=== PATIENT | male | born 1975 | race American Indian/Alaskan Native ===

== ENCOUNTER 2020-09-26 12:32 | Emergency (ER) | payer SELFPAY ==
--- NOTE | 2020-09-26 14:08 | Event Note ---
ED Screening Note Date of service: 09/26/20 Time: 14:07 ED Screening Note: 45-year-old male patient with history of kidney stones presents emergency department with complaints of nontraumatic left flank pain and hematuria starting approximately 8 hours ago. Patient states symptoms are consistent with prior kidney stones. General: Awake, appropriately interactive, no acute distress. Neck: Supple. Full range of motion intact. Cardiovascular: Normal peripheral perfusion. Pulmonary: No respiratory distress. Patient is speaking normally without use of accessory muscles. Skin: No apparent rashes or lesions. Neurological: No facial asymmetry. Speech is clear. Follows commands. Patient is alert and oriented. Musculoskeletal: Moves all four extremities spontaneously with normal range of motion. Psych: Cooperative. Appropriate mood and affect. I have greeted and performed a focused rapid initial assessment of this patient. A comprehensive ED assessment and evaluation of the patient, analysis of all test results, and completion of the medical decision-making process will be conducted by additional ED providers. This initial assessment/diagnostic orders/clinical plan/treatment(s) is/are subject to change based on patients health status, clinical progression and re-assessment. Further treatment and workup at subsequent clinical provider's discretion. Patient/guardian urged not to elope from the ED as their condition may be serious if not clinically assessed and managed.
[2020-09-26 14:38] LABS: Basophils # (Auto) 0.1 K/mm3 (0.0-0.1); Basophils % (Auto) 1.1 % (0.0-1.8); Eosinophils # (Auto) 0.2 K/mm3 (0.0-0.4); Hematocrit 37.8 % (35.5-45.6); Hemoglobin 12.5 gm/dl (11.8-15.2); Lymphocytes # (Auto) 2.3 K/mm3 (1.2-5.4); Lymphocytes % (Auto) 31.8 % (13.4-35.0); Mean Corpuscular HGB Conc 33 % (32-34); Mean Corpuscular Volume 96 fl (84-94); Monocytes # (Auto) 0.5 K/mm3 (0.0-0.8); Monocytes % (Auto) 7.3 % (0.0-7.3); Platelet Count 253 K/mm3 (140-440); Red Blood Count 3.94 M/mm3 (3.65-5.03); Red Cell Distribution Width 12.5 % (13.2-15.2)
[2020-09-26 14:53] LABS: Alanine Aminotransferase 19 units/L (7-56); Albumin 4.2 g/dL (3.9-5); BUN/Creatinine Ratio 18; Blood Urea Nitrogen 18 mg/dL (9-20); Calcium 9.1 mg/dL (8.4-10.2); Hemolysis Index 3
[2020-09-26 15:09] LABS: Bilirubin,Urine NEG (Negative); Blood,Urine LG (Negative); Color,Urine Yellow (Yellow); Mucus,Urine FEW /HPF; Urobilinogen,Urine < 2.0 mg/dL (<2.0)
[2020-09-26 15:28] LABS: RBC,Urine > 182.0 /HPF (0.0-6.0)
[2020-09-26] MEDS ORDERED: SODIUM CHLORIDE 0.9% 1000 ML 1,000 ML IV ONE (17:50)
[2020-09-26] MEDS ORDERED: ONDANSETRON 4 MG/2 ML INJ IV ONE (17:50)
[2020-09-26] MEDS ORDERED: KETOROLAC 30 MG/1 ML INJ IV ONE (17:50)
--- NOTE | 2020-09-26 18:38 | Cat Scan Report ---
CT ABDOMEN AND PELVIS WITHOUT CONTRAST HISTORY: Left flank pain COMPARISON: None TECHNIQUE: Routine abdominal and pelvic CT exam performed without contrast. Lack of intravenous cont rast limits evaluation of the vascular and solid organs.. All CT scans at this location are performed using CT dose reduction for ALARA by means of automated exposure control. FINDINGS: CT ABDOMEN: Lung Bases: No significant abnormality. Liver: No significant abnormality. Biliary: No significant abnormality. Spleen: No significant abnormality. Unenlarged. Pancreas: No significant abnormality. Adrenals: No significant abnormality. Kidneys: There are multiple bilateral intrarenal stones measuring up to 4 mm. There are no ureteral s tones and there is no hydronephrosis. Lymphatics: No lymphadenopathy. Vasculature: No significant abnormality. Bowel/Peritoneum: No significant abnormality. No free air. No free fluid. Normal appendix. CT PELVIC: : No significant abnormality. Lymphatics: No lymphadenopathy. Osseous Structures: No aggressive appearing osseous lesions. Additional Findings: None IMPRESSION: 1. Multiple bilateral intrarenal stones. No ureteral stones or hydronephrosis. Signer Name: Jesus Og MD Signed: 09/26/2020 6:34 PM Workstation Name: [id number]
[2020-09-26 18:41] VITALS: BP 128/86
--- NOTE | 2020-09-26 19:33 | Emergency Department Report ---
ED Abdominal Pain HPI - General Chief Complaint: Abdominal Pain Stated Complaint: BLOOD IN URINE, LOWER BACK PAIN PUI?: No Time Seen by Provider: 09/26/20 17:43 Source: patient Mode of arrival: Ambulatory Limitations: No Limitations - History of Present Illness Initial Comments: This is a 45-year-old male with a history of kidney stone who presents to the ED complaining of hematuria that began yesterday after he got off work. Patient states that he went home thinking nothing of it and when he woke up around 2:30 AM he started having shooting flank pain and today this morning when he went to use the bathroom it was worse than the day before with blood in it. Patient denies any dysuria, nausea vomiting or diarrhea. Patient denies fever/chills/chest pain or shortness of breath. MD Complaint: flank pain Severity scale (0 -10): 8 - Related Data Previous Rx's Medication Instructions Recorded Last Taken Type Hyoscyamine Subl [Levsin Sl] 0.125 mg SL Q4HR PRN #20 tablet 06/04/13 Unknown Rx Metoclopramide HCl [Reglan] 10 mg PO Q8H PRN #20 tablet 06/04/13 Unknown Rx Oxycodone HCl/Acetaminophen 1 each PO Q6HR PRN #30 tablet 06/04/13 Unknown Rx [Percocet 10-325 mg] Ketorolac [Toradol] 10 mg PO Q6H PRN #30 tablet 09/26/20 Unknown Rx Ondansetron [Zofran ODT TAB] 8 mg PO Q12HR #20 tab.rapdis 09/26/20 Unknown Rx Tamsulosin [Flomax] 0.4 mg PO QDAY #10 cap 09/26/20 Unknown Rx Allergies Allergy/AdvReac Type Severity Reaction Status Date / Time No Known Allergies Allergy Verified 06/04/13 00:32 ED Review of Systems ROS: Stated complaint: BLOOD IN URINE, LOWER BACK PAIN Other details as noted in HPI Comment: All other systems reviewed and negative ED Past Medical Hx - Past Medical History Previous Medical History?: No - Surgical History Past Surgical History?: No - Social History Smoking Status: Never Smoker Substance Use Type: None - Medications Home Medications: Home Medications Medication Instructions Recorded Confirmed Last Taken Type Hyoscyamine Subl [Levsin Sl] 0.125 mg SL Q4HR PRN #20 tablet 06/04/13 Unknown Rx Metoclopramide HCl [Reglan] 10 mg PO Q8H PRN #20 tablet 06/04/13 Unknown Rx Oxycodone HCl/Acetaminophen 1 each PO Q6HR PRN #30 tablet 06/04/13 Unknown Rx [Percocet 10-325 mg] Ketorolac [Toradol] 10 mg PO Q6H PRN #30 tablet 09/26/20 Unknown Rx Ondansetron [Zofran ODT TAB] 8 mg PO Q12HR #20 tab.rapdis 09/26/20 Unknown Rx Tamsulosin [Flomax] 0.4 mg PO QDAY #10 cap 09/26/20 Unknown Rx ED Physical Exam - General Limitations: No Limitations General appearance: alert, in no apparent distress - Head Head exam: Present: atraumatic, normocephalic - Eye Eye exam: Present: normal appearance - ENT ENT exam: Present: mucous membranes moist - Neck Neck exam: Present: normal inspection - Respiratory Respiratory exam: Present: normal lung sounds bilaterally. Absent: respiratory distress - Cardiovascular Cardiovascular Exam: Present: regular rate, normal rhythm. Absent: systolic murmur, diastolic murmur, rubs, gallop - GI/Abdominal GI/Abdominal exam: Present: soft, normal bowel sounds - Rectal Rectal exam: Present: deferred - Extremities Exam Extremities exam: Present: normal inspection - Back Exam Back exam: Present: normal inspection, full ROM, CVA tenderness (L). Absent: tenderness, CVA tenderness (R), muscle spasm - Neurological Exam Neurological exam: Present: alert, oriented X3, normal gait - Psychiatric Psychiatric exam: Present: normal affect, normal mood - Skin Skin exam: Present: warm, dry, intact, normal color. Absent: rash ED Course Vital Signs 09/26/20 09/26/20 18:40 18:45 Temperature 98.3 F Pulse Rate 61 Respiratory 18 18 Rate Blood Pressure 128/86 [Right] O2 Sat by Pulse 100 Oximetry - Reevaluation(s) Reevaluation #1: Upon evaluation pain is resolved at this time. CT scan report discussed with patient. IV fluids administration at 500 mL. 09/26/20 19:57 ED Medical Decision Making - Lab Data Result diagrams: 09/26/20 14:21 09/26/20 14:21 Laboratory Last Values WBC 7.2 K/mm3 (4.5-11.0) 09/26/20 14:21 RBC 3.94 M/mm3 (3.65-5.03) 09/26/20 14:21 Hgb 12.5 gm/dl (11.8-15.2) 09/26/20 14:21 Hct 37.8 % (35.5-45.6) 09/26/20 14:21 MCV 96 fl (84-94) H 09/26/20 14:21 MCH 32 pg (28-32) 09/26/20 14:21 MCHC 33 % (32-34) 09/26/20 14:21 RDW 12.5 % (13.2-15.2) L 09/26/20 14:21 Plt Count 253 K/mm3 (140-440) 09/26/20 14:21 Lymph % (Auto) 31.8 % (13.4-35.0) 09/26/20 14:21 [place] % (Auto) 7.3 % (0.0-7.3) 09/26/20 14:21 Eos % (Auto) 3.0 % (0.0-4.3) 09/26/20 14:21 Baso % (Auto) 1.1 % (0.0-1.8) 09/26/20 14:21 Lymph # (Auto) 2.3 K/mm3 (1.2-5.4) 09/26/20 14:21 [place] # (Auto) 0.5 K/mm3 (0.0-0.8) 09/26/20 14:21 Eos # (Auto) 0.2 K/mm3 (0.0-0.4) 09/26/20 14:21 Baso # (Auto) 0.1 K/mm3 (0.0-0.1) 09/26/20 14:21 Seg Neutrophils % 56.8 % (40.0-70.0) 09/26/20 14: Seg Neutrophils # 4.1 K/mm3 (1.8-7.7) 09/26/20 14:21 Sodium 140 mmol/L (137-145) 09/26/20 14:21 Potassium 4.0 mmol/L (3.6-5.0) 09/26/20 14:21 Chloride 104.4 mmol/L (98-107) 09/26/20 14:21 Carbon Dioxide 27 mmol/L (22-30) 09/26/20 14:21 Anion Gap 13 mmol/L 09/26/20 14:21 BUN 18 mg/dL (9-20) 09/26/20 14:21 Creatinine 1.0 mg/dL (0.8-1.3) 09/26/20 14:21 Estimated GFR > 60 ml/min 09/26/20 14:21 BUN/Creatinine Ratio 18 % 09/26/20 14:21 Glucose 77 mg/dL (75-100) 09/26/20 14:21 Calcium 9.1 mg/dL (8.4-10.2) 09/26/20 14: Magnesium 1.80 mg/dL (1.7-2.3) 09/26/20 14: Total Bilirubin 0.50 mg/dL (0.1-1.2) 09/26/20 14: AST 23 units/L (5-40) 09/26/20 14: ALT 19 units/L (7-56) 09/26/20 14:21 Alkaline Phosphatase 73 units/L (35-129) 09/26/20 14:21 Total Protein 6.8 g/dL (6.3-8.2) 09/26/20 14: Albumin 4.2 g/dL (3.9-5) 09/26/20 14:21 Albumin/Globulin Ratio 1.6 % 09/26/20 14:21 Urine Color Yellow (Yellow) 09/26/20 14:27 Urine Turbidity Cloudy (Clear) 09/26/20 14: Urine pH 6.0 (5.0-7.0) 09/26/20 14:27 Ur Specific [place] 1.023 (1.003-1.030) 09/26/20 14: Urine Protein 30 mg/dl mg/dL (Negative) 09/26/20 14:27 Urine Glucose (UA) Neg mg/dL (Negative) 09/26/20 14: Urine Ketones Neg mg/dL (Negative) 09/26/20 14:27 Urine Blood Lg (Negative) 09/26/20 14: Urine Nitrite Neg (Negative) 09/26/20 14: Urine Bilirubin Neg (Negative) 09/26/20 14: Urine Urobilinogen < 2.0 mg/dL (<2.0) 09/26/20 14:27 Ur Leukocyte Esterase Neg (Negative) 09/26/20 14:27 Urine WBC (Auto) 1.0 /HPF (0.0-6.0) 09/26/20 14:27 Urine RBC (Auto) > 182.0 /HPF (0.0-6.0) 09/26/20 14:27 Urine Mucus Few /HPF 09/26/20 14:27 - Radiology Data Radiology results: report reviewed, image reviewed CT ABDOMEN AND PELVIS WITHOUT CONTRAST HISTORY: Left flank pain COMPARISON: None TECHNIQUE: Routine abdominal and pelvic CT exam performed without contrast. Lack of intravenous contrast limits evaluation of the vascular and solid organs.. All CT scans at this location are p erformed using CT dose reduction for ALARA by means of automated exposure control. FINDINGS: CT ABDOMEN: Lung Bases: No significant abnormality. Liver: No significant abnormality. Biliary: No significant abnormality. Spleen: No significant abnormality. Unenlarged. Pancreas: No significant abnormality. Adrenals: No significant abnormality. Kidneys: There are multiple bilateral intrarenal stones measuring up to 4 mm. There are no ureteral stones and there is no hydronephrosis. Lymphatics: No lymphadenopathy. Vasculature: No significant abnormality. Bowel/Peritoneum: No significant abnormality. No free air. No free fluid. Normal appendix. CT PELVIC: : No significant abnormality. Lymphatics: No lymphadenopathy. Osseous Structures: No aggressive appearing osseous lesions. Additional Findings: None IMPRESSION: 1. Multiple bilateral intrarenal stones. No ureteral stones or hydronephrosis. Signer Name: Jesus Og MD Signed: 09/26/2020 6:34 PM Workstation Name: [id number] Transcribed By: ARSH Dictated By: Jesus Og MD Electronically Authenticated By: Jesus Og MD Signed Date/Time: 09/26/20 2244 - Medical Decision Making This is a 45-year-old male presents with flank pain secondary to the kidney stones. Patient received fluids and pain medication in the ED. Patient's pain was resolved with meds. All labs within normal limits. Urinalysis shows hematuria. Discussed meds with the patient. Discussed follow-up with urologist. There was no obstructing stone noted. Discussed possible passing of the stone has hematuria. Patient is in no acute distress patient is comfortable in the ED bed. At this point vitals are normal patient be discharged home Critical care attestation.: If time is entered above; I have spent that time in minutes in the direct care of this critically ill patient, excluding procedure time. ED Disposition Clinical Impression: Nephrolithiasis, Flank pain, Hematuria Disposition: TO HOME OR SELFCARE Is pt being admited?: No Does the pt Need Aspirin: No Condition: Stable Instructions: Low-Purine Eating Plan, Kidney Stones, [id number] Additional Instructions: Make sure to follow up with the primary care physician as discussed. Take all your medications as you've been prescribed. If you have any worsening symptoms or develop new symptoms please return to ED immediately. Prescriptions: Tamsulosin [Flomax] 0.4 mg PO QDAY #10 cap Ketorolac [Toradol] 10 mg PO Q6H PRN #30 tablet PRN Reason: Pain Ondansetron [Zofran ODT TAB] 8 mg PO Q12HR #20 tab.rapdis Referrals: PRIMARY CARE, [Primary Care Provider] - 3-5 Days [facility] [Provider Group] - 3-5 Days [facility] [Outside] - 3-5 Days [facility] [Outside] - 3-5 Days Forms: Accompanied Note, Work/School Release Form(ED) Time of Disposition: 20:03
== END 2020-09-26 20:20 | disposition home or self-care (01) ==
LOC: ED 12:32
DX: N20.0 Calculus of kidney (principal); R31.9 Hematuria, unspecified; Z79.899 Other long term (current) drug therapy
CPT/HCPCS: 36415; 74176; 80053; 81001; 83735; 85025; 96361; 96374; 96375; 99284; J1885; J2405; J7030

== ENCOUNTER 2021-12-25 21:15 | Emergency (ER) | payer SELFPAY ==
[2021-12-26] MEDS ORDERED: ONDANSETRON 4 MG/2 ML INJ IV ONE (02:38)
[2021-12-26] MEDS ORDERED: SODIUM CHLORIDE 0.9% 1000 ML 1,000 ML IV ONE (02:38)
[2021-12-26] MEDS ORDERED: KETOROLAC 30 MG/1 ML INJ IV ONE (02:38)
--- NOTE | 2021-12-26 02:49 | Emergency Department Report ---
ED Abdominal Pain HPI - General Chief Complaint: Abdominal Pain Stated Complaint: FLANK PAIN Time Seen by Provider: 12/26/21 02:37 Source: patient Mode of arrival: Ambulatory Limitations: No Limitations - History of Present Illness Initial Comments: Patient 46-year-old male with history of renal stones who presents with bilateral low back pain radiating to suprapubic x2 days patient states sudden increase in symptoms tonight with 8/10 pain with episodes of nausea and vomiting x2 prior to arrival. Symptoms are exacerbated by voiding. Symptoms are re lieved by nothing tried. Symptoms are accompanied by hematuria. This is similar course) for previous renal stones episodes. MD Complaint: flank pain - Related Data Previous Rx's Medication Instructions Recorded Last Taken Type Hyoscyamine Subl [Levsin Sl] 0.125 mg SL Q4HR PRN #20 tablet 06/04/13 Unknown Rx Metoclopramide HCl [Reglan] 10 mg PO Q8H PRN #20 tablet 06/04/13 Unknown Rx Oxycodone HCl/Acetaminophen 1 each PO Q6HR PRN #30 tablet 06/04/13 Unknown Rx [Percocet 10-325 mg] Ondansetron [Zofran ODT TAB] 8 mg PO Q12HR #20 tab.rapdis 09/26/20 Unknown Rx Ketorolac [Toradol] 10 mg PO Q6H PRN #12 tablet 12/26/21 Unknown Rx Tamsulosin [Flomax] 0.4 mg PO QDAY 7 Days #7 cap 12/26/21 Unknown Rx levoFLOXacin [Levaquin TAB] 500 mg PO QDAY 7 Days #7 tablet 12/26/21 Unknown Rx Allergies Allergy/AdvReac Type Severity Reaction Status Date / Time No Known Allergies Allergy Verified 06/04/13 00:32 ED Review of Systems ROS: Stated complaint: FLANK PAIN Other details as noted in HPI Constitutional: denies: chills, fever Eyes: denies: eye pain, eye discharge, vision change ENT: denies: ear pain, throat pain Respiratory: denies: cough, shortness of breath, wheezing Cardiovascular: denies: chest pain, palpitations Endocrine: no symptoms reported Gastrointestinal: abdominal pain, nausea, vomiting. denies: diarrhea, constipation Genitourinary: urgency, dysuria, frequency, hematuria. denies: discharge, testicular pain, testicular mass Musculoskeletal: back pain (Bilateral CVA tenderness). denies: joint swelling, arthralgia Skin: denies: rash, lesions Neurological: denies: headache, weakness, numbness, paresthesias, confusion, vertigo Psychiatric: denies: anxiety, depression Hematological/Lymphatic: denies: easy bleeding, easy bruising ED Past Medical Hx - Social History Smoking Status: Never Smoker Substance Use Type: None - Medications Home Medications: Home Medications Medication Instructions Recorded Confirmed Last Taken Type Hyoscyamine Subl [Levsin Sl] 0.125 mg SL Q4HR PRN #20 tablet 06/04/13 Unknown Rx Metoclopramide HCl [Reglan] 10 mg PO Q8H PRN #20 tablet 06/04/13 Unknown Rx Oxycodone HCl/Acetaminophen 1 each PO Q6HR PRN #30 tablet 06/04/13 Unknown Rx [Percocet 10-325 mg] Ondansetron [Zofran ODT TAB] 8 mg PO Q12HR #20 tab.rapdis 09/26/20 Unknown Rx Ketorolac [Toradol] 10 mg PO Q6H PRN #12 tablet 12/26/21 Unknown Rx Tamsulosin [Flomax] 0.4 mg PO QDAY 7 Days #7 cap 12/26/21 Unknown Rx levoFLOXacin [Levaquin TAB] 500 mg PO QDAY 7 Days #7 tablet 12/26/21 Unknown Rx ED Physical Exam - General Limitations: No Limitations General appearance: alert, in no apparent distress - Head Head exam: Present: normocephalic, normal inspection - Eye Eye exam: Present: EOMI Pupils: Present: normal accommodation - ENT ENT exam: Present: mucous membranes moist - Neck Neck exam: Present: normal inspection, full ROM. Absent: tenderness, lym phadenopathy - Respiratory Respiratory exam: Present: normal lung sounds bilaterally. Absent: respiratory distress, wheezes - Cardiovascular Cardiovascular Exam: Present: regular rate, normal rhythm, normal heart sounds. Absent: systolic murmur, diastolic murmur, rubs, gallop - GI/Abdominal GI/Abdominal exam: Present: soft, tenderness (Of CVA tenderness), normal bowel sounds. Absent: distended, guarding, rebound, rigid, bruit, hernia - Rectal Rectal exam: Present: deferred - Extremities Exam Extremities exam: Present: normal inspection, full ROM. Absent: pedal edema - Back Exam Back exam: Present: normal inspection, full ROM, CVA tenderness (R), CVA tend erness (L) - Neurological Exam Neurological exam: Present: alert, oriented X3, CN II-XII intact, normal gait - Expanded Neurological Exam Expanded Patient oriented to: Present: person, place, time Speech: Present: fluid speech Motor strength exam: RUE: 5, LUE: 5, RLE: 5, LLE: 5 Best Eye Response ([place]): (4) open spontaneously Best Motor Response ([place]): (6) obeys commands Best Verbal Response ([place]): (5) oriented [place]one Total: 15 - Psychiatric Psychiatric exam: Present: normal affect, normal mood. Absent: anxious - Skin Skin exam: Present: warm, dry, intact, normal color. Absent: rash ED Course Vital Signs 12/25/21 21:43 Temperature 98.6 F Pulse Rate 69 Respiratory 15 Rate Blood Pressure 117/84 [Right] O2 Sat by Pulse 100 Oximetry ED Medical Decision Making - Lab Data Result diagrams: 12/26/21 03:04 12/26/21 03:04 Labs 12/26/21 12/26/21 12/26/21 03:04 03:04 03:14 WBC 10.0 RBC 4.07 Hgb 13.1 Hct 38.9 MCV 96 H MCH 32 MCHC 34 RDW 12.9 L Plt Count 227 Add Manual Diff Complete Total Counted 100 Seg Neuts % (Manual) 80.0 H Band Neutrophils % 0 Lymphocytes % (Manual) 13.0 L Reactive Lymphs % (Man) 0 Monocytes % (Manual) 7.0 Eosinophils % (Manual) 0 Basophils % (Manual) 0 Metamyelocytes % 0 Myelocytes % 0 Promyelocytes % 0 Blast Cells % 0 Nucleated RBC % Not Reportable Seg Neutrophils # Man 8.0 H Band Neutrophils # 0.0 Lymphocytes # (Manual) 1.3 Abs React Lymphs (Man) 0.0 Monocytes # (Manual) 0.7 Eosinophils # (Manual) 0.0 Basophils # (Manual) 0.0 Metamyelocytes # 0.0 Myelocytes # 0.0 Promyelocytes # 0.0 Blast Cells # 0.0 WBC Morphology Not Reportable Hypersegmented Neuts Not Reportable Hyposegmented Neuts Not Reportable Hypogranular Neuts Not Reportable Smudge Cells Not Reportable Toxic Granulation Not Reportable Toxic Vacuolation Not Reportable Dohle Bodies Not Reportable Pelger-Huet Anomaly Not Reportable Noreen Rods Not Reportable Platelet Estimate Consistent w auto Clumped Platelets Not Reportable Plt Clumps, EDTA Not Reportable Large Platelets Not Reportable Giant Platelets Not Reportable Platelet Satelliting Not Reportable Plt Morphology Comment Not Reportable RBC Morphology Not Reportable Dimorphic RBCs Not Reportable Polychromasia Not Reportable Hypochromasia Not Reportable Poikilocytosis Not Reportable Anisocytosis Not Reportable Microcytosis Not Reportable Macrocytosis Not Reportable Spherocytes Not Reportable Pappenheimer Bodies Not Reportable Sickle Cells Not Reportable Target Cells Not Reportable Tear Drop Cells Not Reportable Ovalocytes Not Reportable Helmet Cells Not Reportable [place] Bodies Not Reportable Interior Rings Not Reportable [place] Cells Not Reportable Bite Cells Not Reportable Crenated Cell Not Reportable Elliptocytes Not Reportable Acanthocytes ([place]) Not Reportable Rouleaux Not Reportable Hemoglobin C Crystals Not Reportable Schistocytes Not Reportable Malaria parasites Not Reportable Rajesh Bodies Not Reportable Hem Pathologist Commnt No Sodium 139 Potassium 3.9 Chloride 102.9 Carbon Dioxide 28 Anion Gap 12 BUN 23 H Creatinine 1.2 Estimated GFR > 60 BUN/Creatinine Ratio 19 Glucose 101 H Calcium 9.8 Total Bilirubin 0.30 AST 26 ALT 26 Alkaline Phosphatase 85 Total Protein 7.3 Albumin 4.2 Albumin/Globulin Ratio 1.4 Urine Color Yellow Urine Turbidity Slightly cloudy Specific [place] (Man) 1.010 Ur Protein (Man) Negative Ur Ketones (Man) Negative Urine Bilirubin (Man) Negative Urine WBC (Auto) 15.0 H Urine RBC (Auto) 37.0 Urine RBC (Manual) 2+ Urine Mucus 2+ Urine Yeast ([place]) 3+ - Radiology Data Radiology results: report reviewed, image reviewed CT ABDOMEN AND PELVIS WITHOUT CONTRAST HISTORY: r/o obstructive renal stones. COMPARISON: 09/26/2020 TECHNIQUE: CT images of the abdomen and pelvis were obtained without administration of intravenous contrast. All CT scans at this location are performed using CT dose reduction for ALARA by means of automated exposure control. FINDINGS: Lungs/bones: Lung bases are clear Abdomen/pelvis: Within limits of a noncontrast exam the liver, spleen, adrenal glands, pancreas, gallbladder and upper GI tract appear normal. Several right renal calcifications are again seen largest measuring 4 mm. No obstructing stone is identified. Left renal pelvis a nd proximal ureter are slightly prominent. Mild inflammation surrounding the left kidney there is a calcification within the urinary bladder measuring 3 to 4 mm. The previously identified calcification within the left kidney is not seen. Bowel loops appear normal. No acute bone findings are seen. IMPRESSION: 1. Recently passed left renal stone with 3 to 4 mm stone now within the urinary bladder. Mild left hydroureteronephrosis with perinephric and ureteral stranding. Signer Name: Juliocesar Choudhury MD Signed: 12/26/2021 3:17 AM Workstation Name: [id number] Transcribed By: GWEN Dictated By: CHANCE CHOUDHURY MD Electronically Authenticated By: CHANCE CHOUDHURY MD Signed Date/Time: 12/26/21316 DD/ 3 TD/TT: Print Cancel - Medical Decision Making CT abdomen and pelvis without contrast confirms multiple renal stones including a recently passed left renal stone stone, all stones nonobstructive, pain is imp roved with medications given in ED plan DC to home with prescriptions. Follow- up with urology. Return to emergency department should symptoms worsen or unable to void. Critical care attestation.: If time is entered above; I have spent that time in minutes in the direct care of this critically ill patient, excluding procedure time. ED Disposition Clinical Impression: Kidney stones Disposition: 01 HOME / SELF CARE / HOMELESS Is pt being admited?: No Does the pt Need Aspirin: No Condition: Stable Instructions: Kidney Stones Additional Instructions: Take medications as prescribed, follow-up with urologist in 2 to 3 days. Turn to emergency department should symptoms worsen. Prescriptions: Tamsulosin [Flomax] 0.4 mg PO QDAY 7 Days #7 cap levoFLOXacin [Levaquin TAB] 500 mg PO QDAY 7 Days #7 tablet Ketorolac [Toradol] 10 mg PO Q6H PRN #12 tablet PRN Reason: Pain Referrals: RUBEN BRISENO MD [Staff Physician] - 3-5 Days Forms: Work/School Release Form(ED) Time of Disposition: 06:10
--- NOTE | 2021-12-26 03:21 | Cat Scan Report ---
CT ABDOMEN AND PELVIS WITHOUT CONTRAST HISTORY: r/o obstructive renal stones. COMPARISON: 09/26/2020 TECHNIQUE: CT images of the abdomen and pelvis were obtained without administration of intravenous co ntrast. All CT scans at this location are performed using CT dose reduction for ALARA by means of au tomated exposure control. FINDINGS: Lungs/bones: Lung bases are clear Abdomen/pelvis: Within limits of a noncontrast exam the liver, spleen, adrenal glands, pancreas, gal lbladder and upper GI tract appear normal. Several right renal calcifications are again seen largest measuring 4 mm. No obstructing stone is identified. Left renal pelvis and proximal ureter are slightl y prominent. Mild inflammation surrounding the left kidney there is a calcification within the urinar y bladder measuring 3 to 4 mm. The previously identified calcification within the left kidney is not seen. Bowel loops appear normal. No acute bone findings are seen. IMPRESSION: 1. Recently passed left renal stone with 3 to 4 mm stone now within the urinary bladder. Mild left hy droureteronephrosis with perinephric and ureteral stranding. Signer Name: Juliocesar Jackson MD Signed: 12/26/2021 3:17 AM Workstation Name: [id number]
[2021-12-26 03:32] LABS: Hematocrit 38.9 % (35.5-45.6); Hemoglobin 13.1 gm/dl (11.8-15.2); Mean Corpuscular HGB Conc 34 % (32-34); Mean Corpuscular Volume 96 fl (84-94); Platelet Count 227 K/mm3 (140-440); Red Blood Count 4.07 M/mm3 (3.65-5.03); Red Cell Distribution Width 12.9 % (13.2-15.2)
[2021-12-26 03:55] LABS: Mucus,Urine 2+ /HPF
[2021-12-26 04:08] LABS: Color,Urine Yellow (Yellow)
[2021-12-26] MEDS ORDERED: cefTRIAXone/NS 1 GM/50 ML 1 GM/50 ML BAG IV ONE (04:28)
[2021-12-26 04:40] LABS: Alanine Aminotransferase 26 units/L (7-56); Albumin 4.2 g/dL (3.9-5); BUN/Creatinine Ratio 19; Blood Urea Nitrogen 23 mg/dL (9-20); Calcium 9.8 mg/dL (8.4-10.2); Hemolysis Index 2
[2021-12-26 04:45] LABS: Basophils % (Manual) 0 % (0.0-1.8); Eosinophils % (Manual) 0 % (0.0-4.3); Total Cells Counted 100
[2021-12-26 04:46] LABS: Platelet Estimate Consistent w Auto
[2021-12-26 07:57] VITALS: BP 120/73
== END 2021-12-26 08:10 | disposition home or self-care (01) ==
LOC: ED 21:15
DX: N20.0 Calculus of kidney (principal); Z79.899 Other long term (current) drug therapy
CPT/HCPCS: 36415; 74176; 80053; 81001; 85007; 85025; 87086; 96361; 96365; 96375; 99284; J0696; J1885; J2405; J7030